=== PATIENT | male | born 1985 | race Caucasian/White ===

== ENCOUNTER 2016-12-19 16:44 | Emergency (ER) | payer BC, OTHER ==
[~2016-12-19] VITALS: Ht 175.3 cm; Wt 88.7 kg
[2016-12-19 16:58] VITALS: BP 122/74
== END 2016-12-19 18:40 | disposition home or self-care (01) ==
LOC: ED 18:34
DX: Z04.1 Encounter for examination and observation following transport accident (principal); V49.19XA Passenger injured in collision with other motor vehicles in nontraffic accident, initial encounter; Y93.89 Activity, other specified; Y99.8 Other external cause status; Y92.89 Other specified places as the place of occurrence of the external cause
CPT/HCPCS: 96372; 96374; 99284